=== PATIENT | male | born 1950 | race Caucasian/White ===

== ENCOUNTER 2018-06-06 14:15 | Outpatient (RCR) | payer MEDICARE ==
[2018-03-14 11:54] VITALS: BP 134/121; TEMP 97.7
[2018-03-21 14:25] VITALS: BP 109/73; PULSE 77; TEMP 98
[~2018-06-06] VITALS: Ht 172.7 cm; Wt 80.0 kg
[~2018-06-06 14:15] MED LIST: ALBUTEROL S0.4 MG/ML PO; ALBUTEROL0.83 MG/ML IH; ALUMINUM & MAG355 ML PO; AMARYL4 MG PO; ASPIRIN 81M81 MG/TA2 PO; BACTRIM DS 8001 TAB PO; CLARITIN 1010 MG/TAB PO; CONSTULOSE 20G/30ML PO; CORDARONE200 MG/TAB PO; COREG 3.123.125 MG/T PO; COUMADIN 5MG5 MG/TAB PO; COZAAR 25MG25 MG/TAB PO; DAKIN'S 0.500 ML/1 B TOP; DOXYCYCLINE 10100 MG PO; FENTANYL 25 MCG TD; FLEET ENEM1 BOT/133 RC; GLUCOPHAGE500 MG/TAB PO; HYDROCORTISO28.35 GM TOP; LASIX 40MG TABL40 MG PO; MACRODANTIN100 PO; MAG-AL PLUS 3030 ML PO; MAG-G500 MG PO; MAXIPIME2 GM IJ; MILK OF MA400 MG/52 PO; MULTI-VITAMIN W1 TA1 PO; NATURAL IRON65 MG; NEURONTIN600 MG/TAB PO; NORCO 325 MG-51 TAB PO; PRILOSEC 20MG20 MG PO; PROBIOTIC FORMU1 CAP PO; REGLAN 5MG T5 MG/TAB PO; REMERON 15M15 MG/TA1 PO; SIMETHICONE80 MG PO; STOOL SOFTENER100 M2 PO; SYNTHROID 0.0.025 MG PO; TYLENOL 325MG325 MG PO; VANCOCIN HCL1 GM IV; XARELTO20 MG PO; ZANAFLEX 4MG TAB4 MG PO; ZOCOR 40MG40 MG PO
[2018-06-06 16:25] VITALS: BP 116/68; PULSE 64; TEMP 97.8
[2018-06-06 16:30] VITALS: BP 116/68; PULSE 64; TEMP 97.8
== END 2018-06-12 | disposition home or self-care (01) ==
LOC: EUO
DX: L89.323 Pressure ulcer of left buttock, stage 3 (principal); L89.313 Pressure ulcer of right buttock, stage 3; Z96.0 Presence of urogenital implants; Z95.0 Presence of cardiac pacemaker; Z87.891 Personal history of nicotine dependence; G82.20 Paraplegia, unspecified; Z48.00 Encounter for change or removal of nonsurgical wound dressing; Z79.891 Long term (current) use of opiate analgesic; Z79.899 Other long term (current) drug therapy

== ENCOUNTER 2018-08-29 13:12 | Outpatient (RCR) | payer MEDICARE, MEDICAID ==
[~2018-08-29] VITALS: Ht 172.7 cm; Wt 64.5 kg
[2018-08-29 13:27] VITALS: BP 130/72; PULSE 64
== END 2018-11-27 ==
LOC: EUO
DX: L89.319 Pressure ulcer of right buttock, unspecified stage (principal)